=== PATIENT | female | born 1945 | race Caucasian/White ===

== ENCOUNTER 2020-07-15 16:15 | Outpatient (CLI) | payer MEDICARE, OTHER, SELFPAY ==
--- NOTE | ~2020-07-15 | US_ITS ---
EXAMINATION: US carotid duplex BI DATE: 07/15/2020 16:42 INDICATION: Carotid bruit TECHNIQUE: Grayscale, color Doppler, and pulsed Doppler images of the cervical carotid arteries were obtained. The degree of vessel stenosis is placed in one of the following categories: normal, <50%, 5 0-69%, >=70% but less than near-occlusion, near-occlusion, or total occlusion. Note that percent sten osis relative to normal distal artery lumen diameter is indirectly measured from velocity measurement s as described by Mikie, et al. Radiology 2003; 229:340-346. Notes: Normal: Peak systolic velocity <125 centimeters/sec and no plaque <50%. Peak systolic velocity <125 ( EDV <40; ICA/CCA PSV ratio <2.0; used these factors only a tandem lesions or low cardiac output or co ntralateral disease) 50-69 %: PSV 125-230 (EDV 40-100; ratio 2-4) >= 70% but less than near occlusion: PSV greater than 230 (EDV > 100; ratio> 4.0) Near Occlusion: PSV that is variable; markedly narrowed lumen Occlusion: Absent flow on color/spectral Doppler and no lumen on oliver scale. COMPARISON: None. FINDINGS: RIGHT: The right common carotid artery (CCA) peak systolic velocity (PSV) is 82 cm/s. The right internal car otid artery (ICA) PSV is 146 cm/s. The right ICA end-diastolic velocity (EDV) is 44 cm/s. The right I CA/CCA PSV ratio is 1.8. The external carotid artery (ECA) PSV is 102 cm/s. There is antegrade flow i n the right vertebral artery. LEFT: The left CCA PSV is 98 cm/s. The left ICA PSV is 128 cm/s. The left ICA EDV is 35 cm/s. The left ICA/ CCA PSV ratio is 1.3. The ECA PSV is 97 cm/s. There is antegrade flow in the left vertebral artery. IMPRESSION: 1. 50-69% stenosis in the right internal carotid artery by sonographic criteria. 2. 50-69% stenosis in the left internal carotid artery by sonographic criteria. Reviewed, dictated and finalized at location A. ROAD MECHANIC IMPRESSION: 1. 50-69% stenosis in the right internal carotid artery by sonographic criteria . 2. 50-69% stenosis in the left internal carotid artery by sonographic criteria.
== END 2020-07-15 16:16 | disposition home or self-care (01) ==
LOC: ANHIMG 16:19
PROVIDERS: PCP Nurse Practitioner Adult Health; Visit Provider Internal Medicine Cardiovascular Disease
DX: R09.89 Other specified symptoms and signs involving the circulatory and respiratory systems (principal); I65.23 Occlusion and stenosis of bilateral carotid arteries
CPT/HCPCS: 93880

== ENCOUNTER 2021-07-27 07:32 | Outpatient (CLI) | payer MEDICARE, OTHER, SELFPAY ==
[2021-07-27 08:01] LABS: Hematocrit 38.2 % (37.0-47.0); Hemoglobin 12.4 g/dL (12.0-15.0); Mean Corpuscular HGB Conc 32.5 g/dl (32-36); Mean Corpuscular Hemoglobin 30.8 pg (26-34); Mean Platelet Volume 10.2 fl (7.4-10.4); Platelet Count Result 176 k/mm3 (150-375); Red Blood Count 4.02 M/mm3 (4.2-5.4); Red Cell Distribution Width 13.2 % (11.5-14.5); White Blood Count 5.5 K/mm3 (4.5-10.0)
[2021-07-27 08:11] LABS: Cholesterol 141 mg/dL (0-200); HDL Direct 44 mg/dL; Triglycerides 114 mg/dL (<150)
[2021-07-27 08:21] LABS: LDL Cholesterol Direct 60 mg/dL
== END 2021-07-27 07:33 | disposition home or self-care (01) ==
LOC: ANHLAB 07:36
PROVIDERS: PCP Nurse Practitioner Adult Health; Visit Provider Internal Medicine Cardiovascular Disease
DX: R06.00 Dyspnea, unspecified (principal); I25.10 Atherosclerotic heart disease of native coronary artery without angina pectoris; I65.23 Occlusion and stenosis of bilateral carotid arteries; E78.00 Pure hypercholesterolemia, unspecified
CPT/HCPCS: 36415; 80061; 85027

== ENCOUNTER 2021-08-29 14:48 | Outpatient (CLI) | payer MEDICARE, OTHER, SELFPAY ==
--- NOTE | ~2021-08-29 | US_ITS ---
EXAMINATION: US carotid duplex BI DATE: 08/29/2021 15:24 INDICATION: Atherosclerosis TECHNIQUE: Grayscale, color Doppler, and pulsed Doppler images of the cervical carotid arteries were obtained. The degree of vessel stenosis is placed in one of the following categories: normal, <50%, 5 0-69%, >=70% but less than near-occlusion, near-occlusion, or total occlusion. Note that percent sten osis relative to normal distal artery lumen diameter is indirectly measured from velocity measurement s as described by Mikie, et al. Radiology 2003; 229:340-346. Notes: Normal: Peak systolic velocity <125 centimeters/sec and no plaque <50%. Peak systolic velocity <125 ( EDV <40; ICA/CCA PSV ratio <2.0; used these factors only a tandem lesions or low cardiac output or co ntralateral disease) 50-69 %: PSV 125-230 (EDV 40-100; ratio 2-4) >= 70% but less than near occlusion: PSV greater than 230 (EDV > 100; ratio> 4.0) Near Occlusion: PSV that is variable; markedly narrowed lumen Occlusion: Absent flow on color/spectral Doppler and no lumen on oliver scale. COMPARISON: None. FINDINGS: RIGHT: The right common carotid artery (CCA) peak systolic velocity (PSV) is 153 cm/s. The right internal ca rotid artery (ICA) PSV is 94 cm/s. The right ICA end-diastolic velocity (EDV) is 26 cm/s. The right I CA/CCA PSV ratio is 0.6. The external carotid artery (ECA) PSV is 81 cm/s. There is antegrade flow in the right vertebral artery. LEFT: The left CCA PSV is 98 cm/s. The left ICA PSV is 85 cm/s. The left ICA EDV is 29 cm/s. The left ICA/C CA PSV ratio is 0.9. The ECA PSV is 111 cm/s. There is antegrade flow in the left vertebral artery. IMPRESSION: 1. Less than 50% stenosis in the right internal carotid artery by sonographic criteria. 2. Less than 50% stenosis in the left internal carotid artery by sonographic criteria. Reviewed, dictated and finalized at location A. IMPRESSION: 1. Less than 50% stenosis in the right internal carotid artery by sonographic janine johnson. 2. Less than 50% stenosis in the left internal carotid artery by sonographic red lozada.
== END 2021-08-29 14:49 | disposition home or self-care (01) ==
LOC: ANHIMG 14:51
PROVIDERS: PCP Nurse Practitioner Adult Health; Visit Provider Internal Medicine Cardiovascular Disease
DX: I65.23 Occlusion and stenosis of bilateral carotid arteries (principal)
CPT/HCPCS: 93880

== ENCOUNTER 2022-06-06 15:21 | Outpatient (CLI) | payer MEDICARE, OTHER, SELFPAY ==
--- NOTE | ~2022-06-06 | XR_ITS ---
EXAM: XR knee LT min 4V DATE: 06/06/2022 16:12 HISTORY: M23.90 - Unspecified internal derangement of unspecified NKI . COMPARISON: 03/13/2017. FINDINGS: Decreased mineralization. No fracture or dislocation. No lytic or blastic lesion. Severe m edial compartment narrowing. Moderate tricompartmental osteophytosis. No erosion or periosteal change . Soft tissues within normal limits. IMPRESSION: Tricompartmental left knee osteoarthritis, severe in the medial compartment. Reviewed, dictated and finalized at location K. ARY SERIALS ASSISTANT IMPRESSION: Tricompartmental left knee osteoarthritis, severe in the medial com partment.
== END 2022-06-06 15:22 | disposition home or self-care (01) ==
PROVIDERS: PCP Family Medicine; Visit Provider Family Medicine
DX: M23.90 Unspecified internal derangement of unspecified knee (principal); M17.12 Unilateral primary osteoarthritis, left knee
CPT/HCPCS: 73564

== ENCOUNTER 2022-12-01 06:59 | Outpatient (CLI) | payer MEDICARE, OTHER, SELFPAY ==
[2022-12-01 07:51] LABS: Basophils Percent Auto 0.7 % (0.2-1.2); Eosinophils Absolute Auto 0.4 K/mm3 (0-0.3); Eosinophils Percent Auto 5.9 % (0-4.4); Hematocrit 36.9 % (37.0-47.0); Hemoglobin 11.9 g/dL (12.0-15.0); Immature Granulocyte Absolute 0.01 K/mm3 (0.00-0.031); Immature Granulocyte Percent A 0.2 % (0-0.5); Lymphocytes Absolute Auto 2.36 K/mm3 (0.9-3.2); Lymphocytes Percent Auto 39.5 % (18.3-44.2); Mean Corpuscular HGB Conc 32.2 g/dl (32-36); Mean Corpuscular Hemoglobin 30.7 pg (26-34); Mean Corpuscular Volume 95.3 fl (80-100); Mean Platelet Volume 10.8 fl (7.4-10.4); Monocytes Absolute Auto 0.7 K/mm3 (0.1-0.6); Monocytes Percent Auto 11.2 % (2.6-8.5); Neutrophils Absolute Auto 2.6 K/mm3 (1.3-6.7); Neutrophils Percent Auto 42.5 % (45.5-73.1); Platelet Count Result 191 k/mm3 (150-375); Red Blood Count 3.87 M/mm3 (4.2-5.4); Red Cell Distribution Width 13.7 % (11.5-14.5)
[2022-12-01 08:29] LABS: Alanine Aminotransferase 29 U/L (6-35); Albumin Level 4.1 g/dL (3.5-5.1); Alkaline Phosphatase 108 U/L (38-126); Anion Gap 6 mmol/L (8-16); Aspartate Amino Transferase 41 U/L (14-36); Bilirubin,Total 0.6 mg/dL (0.2-1.3); Blood Urea Nitrogen 19 mg/dL (7-17); Calcium 8.6 mg/dL (8.4-10.2); Carbon Dioxide 27 mmol/L (22-30); Chloride 108 mmol/L (98-107); Cholesterol 134 mg/dL (0-200); Estimated Glomerular Filt Rate > 60; Glucose 90 mg/dL (65-110); HDL Direct 49 mg/dL; Potassium 4.2 mmol/L (3.4-5.0); Sodium 141 mmol/L (137-145); Triglycerides 107 mg/dL (<150)
[2022-12-01 08:39] LABS: LDL Cholesterol Direct 62 mg/dL
== END 2022-12-01 07:00 | disposition home or self-care (01) ==
PROVIDERS: PCP Family Medicine; Visit Provider Family Medicine
DX: I10 Essential (primary) hypertension (principal); E78.2 Mixed hyperlipidemia; F41.1 Generalized anxiety disorder; R53.83 Other fatigue
CPT/HCPCS: 36415; 80053; 80061; 82607; 84443; 85025

== ENCOUNTER 2023-01-02 07:03 | Outpatient (CLI) | payer MEDICARE, OTHER, SELFPAY ==
[2023-01-02 07:31] LABS: Potassium 4.6 mmol/L (3.4-5.0)
[2023-01-02 07:42] LABS: Alanine Aminotransferase 31 U/L (6-35); Albumin Level 4.1 g/dL (3.5-5.1); Alkaline Phosphatase 92 U/L (38-126); Anion Gap 7 mmol/L (8-16); Aspartate Amino Transferase 37 U/L (14-36); Bilirubin,Total 0.5 mg/dL (0.2-1.3); Blood Urea Nitrogen 14 mg/dL (7-17); Carbon Dioxide 29 mmol/L (22-30); Chloride 106 mmol/L (98-107); Estimated Glomerular Filt Rate > 60; Glucose 91 mg/dL (65-110); Sodium 142 mmol/L (137-145)
[2023-01-02 07:48] LABS: Basophils Absolute Auto 0.1 K/mm3 (0.0-0.1); Eosinophils Absolute Auto 0.3 K/mm3 (0-0.3); Eosinophils Percent Auto 5.1 % (0-4.4); Hematocrit 27.2 % (37.0-47.0); Hemoglobin 12.4 g/dL (12.0-15.0); Immature Granulocyte Absolute 0.01 K/mm3 (0.00-0.031); Immature Granulocyte Percent A 0.2 % (0-0.5); Lymphocytes Absolute Auto 2.13 K/mm3 (0.9-3.2); Lymphocytes Percent Auto 41.5 % (18.3-44.2); Mean Corpuscular HGB Conc 45.6 g/dl (32-36); Mean Platelet Volume 10.8 fl (7.4-10.4); Monocytes Absolute Auto 0.6 K/mm3 (0.1-0.6); Monocytes Percent Auto 11.3 % (2.6-8.5); Neutrophils Absolute Auto 2.1 K/mm3 (1.3-6.7); Neutrophils Percent Auto 40.9 % (45.5-73.1); Platelet Count Result 169 k/mm3 (150-375); Red Blood Count 2.64 M/mm3 (4.2-5.4); Red Cell Distribution Width 16.1 % (11.5-14.5); White Blood Count 5.1 K/mm3 (4.5-10.0)
== END 2023-01-02 07:04 | disposition home or self-care (01) ==
PROVIDERS: PCP Family Medicine; Visit Provider Physician Assistant
DX: M85.80 Other specified disorders of bone density and structure, unspecified site (principal); D64.9 Anemia, unspecified; R79.89 Other specified abnormal findings of blood chemistry
CPT/HCPCS: 36415; 80053; 85025

== ENCOUNTER 2023-01-04 14:32 | Outpatient (CLI) | payer MEDICARE, OTHER, SELFPAY ==
[2023-01-04 16:47] LABS: Iron 99 ug/dL (37-170)
[2023-01-04 17:02] LABS: Percent Iron Saturation 28 % (20-50)
[2023-01-07 14:09] LABS: Red Blood Cell Folate 825 ng/mL RBC (>280)
== END 2023-01-04 14:33 | disposition home or self-care (01) ==
PROVIDERS: PCP Family Medicine; Visit Provider Physician Assistant
DX: D64.9 Anemia, unspecified (principal)
CPT/HCPCS: 36415; 82607; 82728; 82747; 83540; 83550

== ENCOUNTER 2023-01-05 07:48 | Outpatient (NON) | payer MEDICARE, OTHER, SELFPAY ==
[2023-01-05 13:07] LABS: IFOB Positive Control Positive; Immunochemical Fecal Occult Bl Negative (N)
== END 2023-01-05 07:49 | disposition home or self-care (01) ==
LOC: ANHLAB 07:50
PROVIDERS: PCP Family Medicine; Visit Provider Physician Assistant
DX: D64.9 Anemia, unspecified (principal)
CPT/HCPCS: 82274

== ENCOUNTER 2023-01-31 17:07 | Outpatient (CLI) | payer MEDICARE, OTHER, SELFPAY ==
[2023-01-31 17:44] LABS: Basophils Absolute Auto 0.1 K/mm3 (0.0-0.1); Basophils Percent Auto 0.9 % (0.2-1.2); Eosinophils Absolute Auto 0.3 K/mm3 (0-0.3); Hemoglobin 11.9 g/dL (12.0-15.0); Immature Granulocyte Absolute 0.01 K/mm3 (0.00-0.031); Immature Granulocyte Percent A 0.1 % (0-0.5); Lymphocytes Percent Auto 35.3 % (18.3-44.2); Mean Corpuscular HGB Conc 32.2 g/dl (32-36); Mean Corpuscular Hemoglobin 30.1 pg (26-34); Mean Corpuscular Volume 93.4 fl (80-100); Mean Platelet Volume 10.8 fl (7.4-10.4); Monocytes Absolute Auto 0.7 K/mm3 (0.1-0.6); Monocytes Percent Auto 10.3 % (2.6-8.5); Neutrophils Absolute Auto 3.3 K/mm3 (1.3-6.7); Neutrophils Percent Auto 48.4 % (45.5-73.1); Platelet Count Result 184 k/mm3 (150-375); Red Blood Count 3.96 M/mm3 (4.2-5.4); Red Cell Distribution Width 13.8 % (11.5-14.5); White Blood Count 6.8 K/mm3 (4.5-10.0)
== END 2023-01-31 17:08 | disposition home or self-care (01) ==
LOC: ANHLAB 17:09
PROVIDERS: PCP Family Medicine; Visit Provider Physician Assistant
DX: D64.9 Anemia, unspecified (principal)
CPT/HCPCS: 36415; 85025

== ENCOUNTER 2023-11-03 07:30 | Outpatient (CLI) | payer MEDICARE, SELFPAY ==
[2023-11-03 08:00] LABS: Basophils Percent Auto 0.7 % (0.2-1.2); Eosinophils Absolute Auto 0.4 K/mm3 (0-0.3); Eosinophils Percent Auto 6.5 % (0-4.4); Hematocrit 40.1 % (37.0-47.0); Hemoglobin 12.6 g/dL (12.0-15.0); Immature Granulocyte Absolute 0.03 K/mm3 (0.00-0.031); Immature Granulocyte Percent A 0.5 % (0-0.5); Lymphocytes Absolute Auto 2.33 K/mm3 (0.9-3.2); Lymphocytes Percent Auto 41.1 % (18.3-44.2); Mean Corpuscular HGB Conc 31.4 g/dl (32-36); Mean Corpuscular Hemoglobin 30.4 pg (26-34); Mean Corpuscular Volume 96.9 fl (80-100); Mean Platelet Volume 10.1 fl (7.4-10.4); Monocytes Absolute Auto 0.6 K/mm3 (0.1-0.6); Monocytes Percent Auto 10.6 % (2.6-8.5); Neutrophils Absolute Auto 2.3 K/mm3 (1.3-6.7); Neutrophils Percent Auto 40.6 % (45.5-73.1); Platelet Count Result 198 k/mm3 (150-375); Red Blood Count 4.14 M/mm3 (4.2-5.4); Red Cell Distribution Width 13.4 % (11.5-14.5); White Blood Count 5.7 K/mm3 (4.5-10.0)
[2023-11-03 08:08] LABS: Alanine Aminotransferase 25 U/L (6-35); Alkaline Phosphatase 90 U/L (38-126); Anion Gap 5 mmol/L (4-12); Aspartate Amino Transferase 33 U/L (14-36); Bilirubin,Total 0.7 mg/dL (0.2-1.3); Blood Urea Nitrogen 13 mg/dL (7-17); Calcium 9.1 mg/dL (8.4-10.2); Carbon Dioxide 28 mmol/L (22-30); Chloride 110 mmol/L (98-107); Cholesterol 147 mg/dL (0-200); Estimated Glomerular Filt Rate > 60; Glucose 87 mg/dL (65-110); HDL Direct 51 mg/dL; Potassium 4.9 mmol/L (3.4-5.0); Sodium 143 mmol/L (137-145); Triglycerides 113 mg/dL (<150)
[2023-11-03 08:19] LABS: LDL Cholesterol Direct 73 mg/dL
== END 2023-11-03 07:31 | disposition home or self-care (01) ==
PROVIDERS: PCP Family Medicine; Visit Provider Family Medicine
DX: E78.2 Mixed hyperlipidemia (principal); I10 Essential (primary) hypertension
CPT/HCPCS: 36415; 80053; 80061; 85025

== ENCOUNTER 2023-11-06 14:15 | Outpatient (CLI) | payer MEDICARE, SELFPAY ==
--- NOTE | ~2023-11-06 | MR_ITS ---
MRI of the right ankle Clinical history: Pain Technique: Coronal proton-density and proton-density fat-sat images, axial proton-density and proton- density fat-sat images, and sagittal proton-density and proton-density fat-sat images were acquired. Findings: Syndesmotic ligaments are intact. Anterior and posterior talofibular ligaments, and calcane ofibular ligament are intact. Deltoid ligament is intact. Medial flexor tendons, peroneus longus tendon, and anterior extensor tendons are intact. There is alessia gitudinal split tear of the peroneus brevis tendon at and just distal to the level of the lateral mal leolus tip. There is moderate to advanced Achilles tendinosis, with a focal moderate grade partial th ickness tear (axial image 15, sagittal image 9), involving approximately 50-60% of the total tendon t hickness. There are tear is approximately 4.5 cm proximal to the Achilles insertion on the calcaneus. No osteochondral lesion of the talar dome seen. There is moderate to advanced degenerative change of the naviculocuneiform and tarsometatarsal articulations, with areas of subchondral cystic change pres ent. Tibiotalar and subtalar joints are intact. No significant joint effusion. Small plantar calcaneal spur present. Plantar fascia intact. No soft tissue mass evident. There is mi ld diffuse subcutaneous soft tissue edema about the ankle, nonspecific. 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 Longitudinal split tear of the peroneus brevis tendon. Moderate to advanced degenerative change of the naviculocuneiform and tarsometatarsal joints. Reviewed, dictated and finalized at location . 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 Longitudinal split tear of the peroneus brevis tendon. Moderate to advanced degenerative change of the naviculocuneiform and tarsometa tarsal joints.
== END 2023-11-06 14:16 ==
LOC: MICIMG 14:17
PROVIDERS: PCP Family Medicine; Visit Provider Podiatrist Foot & Ankle Surgery
DX: M76.61 Achilles tendinitis, right leg (principal); M66.371 Spontaneous rupture of flexor tendons, right ankle and foot; M19.071 Primary osteoarthritis, right ankle and foot
CPT/HCPCS: 73721

== ENCOUNTER 2023-12-29 13:08 | Outpatient (CLI) | payer MEDICARE, SELFPAY ==
--- NOTE | ~2023-12-29 | XR_ITS ---
XR knee LT min 4V 12/29/2023 13:26 INDICATION: Left knee pain PROCEDURE: 4 views left knee COMPARISON: 10/04/2022 FINDINGS: Fracture, dislocation or subluxation is not identified. There is moderate osteoarthritis of the left knee. The soft tissues appear within normal limits. No foreign bodies are identified. No s ignificant joint effusion. IMPRESSION: 1: Moderate osteoarthritis of the left knee. Reviewed, dictated and finalized at location B.
== END 2023-12-29 13:09 | disposition home or self-care (01) ==
LOC: ANHIMG 13:14
PROVIDERS: PCP Family Medicine; Visit Provider Orthopaedic Surgery
DX: M17.12 Unilateral primary osteoarthritis, left knee (principal)
CPT/HCPCS: 73564

== ENCOUNTER 2024-09-18 08:19 | Outpatient (CLI) | payer MEDICARE, SELFPAY ==
--- OUTSIDE RECORDS SUMMARY | 2024-09-18 08:30 | XMS_ITS | Referral Summary ---
Author Organization [facility] Address [address] [place] [address] Care Team Providers Care Food Trades Assistants Name Role Phone Silvino Calvillo MD Primary Care Provider Encounters Date Type Department Care Team Description 08/06/2024 11:15 AM DIRECTOR COMMUNITY HEALTH NURSING Office Visit [facility] Cardiology [address] [place] [address] Aubrey Martinez MD Coronary artery disease involving [place] coronary artery of [place] heart without angina pectoris (Primary Dx); Aortic valve sclerosis; Essential hypertension; ELIECER on CPAP from Last 3 Months Allergies Active Allergy Reactions Criticality Noted Date Comments Lisinopril Cough Low 10/22/2018 Losartan Other (See comments),Cough Low 04/08/2019 Doesn't work as well as amlodipine Medications ALPRAZolam (XANAX) 0.5 mg tablet Take 1 tablet (0.5 mg total) by mouth daily Take 1 1/2 QD 9 Active aspirin 81 mg enteric coated tablet Take 1 tablet (81 mg total) by mouth daily Active calcium carbonate-vitamin D3 500 mg(1,250mg) -400 unit chewable tablet Take 1 tablet by mouth daily Active cholecalciferol (VITAMIN D-3) 5,000 unit tablet Ac tive magnesium oxide 500 mg capsule Take by mouth Active vitamin E 400 unit capsule Take 1 capsule (400 Units total) by mouth daily Active folic acid (FOLVITE) 400 mcg tablet Take 1 tablet (400 mcg total) by mouth daily Active ascorbic acid (VITAMIN C) 500 mg tablet,chewable Take 1 tablet/chew tab (500 mg total) by mouth daily Active elderberry fruit-honey 0.7-3 gram/7.5 mL liquid Take by mouth Active zinc 50 mg tablet Take 3.75 mg by mouth Active ferrous gluconate 236 mg (27 mg iron) tablet Take by mouth Active amLODIPine (NORVASC) 5 mg tabletIndications :Essential hypertension Take 1 tablet (5 mg total) by mouth daily 90 tablet 3 4 Active atorvastatin (LIPITOR) 40 mg tabletIndications :Coronary artery disease involving [place] coronary artery of [place] heart without angina pectoris,Hypercho lesterolemia Take 1 tablet (40 mg total) by mouth daily 90 tablet 3 4 Active olmesartan (BENICAR) 40 mg tabletIndications :Hypertension, unspecified type Take 1 tablet (40 mg total) by mouth daily 90 tablet 3 4 Active Active Problems Problem Noted Date Diagnosed Date PSVT (paroxysmal supraventricular tachycardia) 0 07/30/2023 Nonrheumatic aortic valve stenosis 07/17/2022 Carotid atherosclerosis, bilateral 07/25/2021 Coronary artery disease invo lving [place] coronary artery of [place] heart without angina pectoris 05/21/2019 Hypercholesterolemia 10/27/2018 Diastolic dysfunction 09/08/2018 Nonrheumatic tricuspid valve regurgitation 09/08 Nonrheumatic mitral valve regurgitation 09/09/19 19 Bradycardia 09/08/2018 Sinus tachycardia 09/03/2018 ELIECER on CPAP 09/03/2018 Pulmonary hypertension 05/08/2011 Essential hypertension 05/08/2011 MEADOWS (dyspnea on exertion) 05/08/2011 Resolved Problems Problem Noted Date Diagnosed Date Resolved Date Bilateral carotid bruits 07/13/202011/2022 Abnormal stress test 10/22/2018 023 Chest discomfort 03/25/2012 07/17/2022 Social History Tobacco Use Types Packs/Day Years Used Date Smoking Tobacco: Never Smokeless Tobacco: Never Tobacco Cessation:Counseling Given: Not Answered Alcohol Use Standard Drinks/Week Comments Not Currently 0 (1 standard drink = 0.6 oz pur e alcohol) AUDIT-C Answer Date Recorded Frequency of Alcohol Consumption Never 09/03/2018 Average Number of Drinks Not on file 019 Frequency of Binge Drinking Not on file 08/10 Comments Unknown Sex and Gender Information Value Date Recorded Sex Assigned at Not on file Legal Sex Female 1:39 AM DIRECTOR COMMUNITY HEALTH NURSING Gender Identity Not on file Sexual Orientation Not on file Last Filed Vital Signs Vital Sign Reading Time Taken Comments Blood Pressure 122/58 08/06/2024 11:09 AM DIRECTOR COMMUNITY HEALTH NURSING Pulse 68 08/06/2024 11:09 AM DIRECTOR COMMUNITY HEALTH NURSING Temperature - - Respiratory Rate 16 09/03/2018 12:46 PM CDT Oxygen Saturation 96% 08/06/2024 11:09 AM DIRECTOR COMMUNITY HEALTH NURSING Inhaled Oxygen Concentration - - Weight 72.6 kg (160 lb) 08/06/2024 11:09 AM DIRECTOR COMMUNITY HEALTH NURSING Height 160 cm (5' 3 ) 08/06/2024 11:09 AM DIRECTOR COMMUNITY HEALTH NURSING Body Mass Index 28.34 08/06/2024 11:09 AM DIRECTOR COMMUNITY HEALTH NURSING Plan of Treatment Not on file Insurance MEDICARE [employer] [facility] MEDICARE RAILROAD [facility] MEDICARE SUPPLEMENT INSURANCE MEDICARE RAILROAD [facility] MEDICARE SUPPLEMENT INSURANCE Care Teams Food Trades Assistants Relationship Specialty Start Date End Date Silvino Calvillo MD [address] [facility] [address] [place] [address] PCP - General Family Medicine 08/06/24
--- OUTSIDE RECORDS SUMMARY | 2024-09-18 08:30 | XMS_ITS | Encounter Summary ---
Author Organization [facility] Address [address] [place] [address] Care Team Providers Care Assistant Scientist Name Role Phone Unavailable Primary Care Provider Unavailabl e Encounter Details Date Type Department Care Team (Late st Contact Info) Description 07/25/2018 Lab Requisition [facility] Care DermPath Lab [address] [place] [id number] Pavithra Hughes MD [address] [facility] [address] [place] [address] Social History Tobacco Use Types Packs/Day Years Used Date Smoking Tobacco: Never Assessed Sex and Gender Information Value Date Recorded Sex Assigned at Not on file Gender Identity Not on file Sexual Orientation Not on file documented as of this encounter Plan of Treatment Not on file documented as of this encounter Procedures Procedure Name Priority Date/Time Associated Diagnosis Comments DERMATOPATH TECHNICAL REPORT Routine 07/23/2018 12:00 AM TARGET TRIMMER documented in this encounter Results * DERMATOPATH TECHNICAL REPORT (07/23/2018 12:00 AM TARGET TRIMMER) Case Report Dermatopathology Report Case: [id number] Authorizing Provider: Pavithra Hughes MD Collected: 07/23/2018 12:00 AM Pathologist: Justin Yen MD Received: 07/25/2018 07:22 AM Specimen: Skin, right plantar foot 9 2:33 PM [facility] DERMATOPATHOLOGY LABORATORY Clinical History Nevus 9 2:33 PM [facility] DERMATOPATHOLOGY LABORATORY Gross Description Specimen A: Received is one formalin filled container labeled with the patient's name and designated right plantar foot. The specimen consists of a shave biopsy measuring 7x7x2 mm. Jar [address]. [facility] Dermatopathology Laboratory performed the technical component only. 9 2:33 PM [facility] DERMATOPATHOLOGY LABORATORY Embedded Images 9 2:33 PM [facility] DERMATOPATHOLOGY LABORATORY DISCLAIMER An external and internal positive and negative controls are appropriate for the histochemical, immunohistochemical and immunofluorescence stain(s) in this case (if any), except where stated explicitly. The performance characteristics of the stain(s) cited in this report were developed and its performance characteristic determined by the Dermatopathology Laboratory at [facility], directed by Dr. Ligia Yen. These tests need not be, and therefore are not, approved by the [place] Food and Drug Administration. The tests are used for clinical purposes. 9 2:33 PM [facility] DERMATOPATHOLOGY LABORATORY Pathology/Cytolog y TISSUE SPECIMEN FROM SKIN / Unknown 07/23/2018 07/25/2018 7:22 AM TARGET TRIMMER Pavithra Hughes MD LAB - PATHOLOGY/CYT OLOGY ORDERABLES DERMATOPATHOLOGY LABORATORY [facility] - Department of Dermatology [address] [place] [address], [facility] [phone] documented in this encounter Visit Diagnoses Not on filedocumented in this encounter
--- OUTSIDE RECORDS SUMMARY | 2024-09-18 08:30 | XMS_ITS | Encounter Summary ---
Author Organization [facility] Address [address] [place] [address] Care Team Providers Care Grocery Stocker Name Role Phone Venice Matthew Primary Care Provider [phone] Encounter Details Date Type Department Care Team (Latest Contact Info) Description 11/30/2008 Outpatient Historical [facility]OLOGY Davida Giang MD Other Screening Mammogram Social History Tobacco Use Types Packs/Day Years Used Date Smoking Tobacco: Never Assessed Comments Unknown Sex and Gender Information Value Date Recorded Sex Assigned at Not on file Legal Sex Female 3:05 AM BODY MAKER MACHINE SETTER Gender Identity Not on file Sexual Orientation Not on file documented as of this encounter Plan of Treatment Not on file documented as of this encounter Procedures Procedure Name Priority Date/Time Associated Diagnosis Comments MAMMO SCREEN BILAT W OR WO CAD Routine 11/30/2008 8:38 AM CDT documented in this encounter Results * MAMMO DIGITAL SCREEN BILAT (11/30/2008 8:38 AM CDT) Anatomical Region Laterality Modality Breast Bilateral Other 11/30/2008 8:38 AM CDT Narrative 12/01/2008 1:48 PM CDT [facility] [address] [place] [id number] Admit Date: 11/30/2008 ANIYAH CALVILLO Sex: F Admit Prov: DAVIDA GIANG Date: 1945 Primary Care Prov: BRENDADAVIDA CMRN: [id number] Room: [facility] SSN: [id number] IMAGING SERVICES Ordering Prov: DAVIDA GIANG Accession Number: [id number] Interpretation BILATERAL FULL FIELD DIGITAL SCREENING MAMMOGRAM WITH CAD. Date: 11/30/2008 History: Routine Screening. Technique: Full field digital craniocaudal and mediolateral oblique projections of both breasts were obtained. Computer aided detection was performed. Comparison: 09/2006, 08/2006 Breast Parenchymal Composition: Scattered fibroglandular densities. Findings: No suspicious mass, suspicious microcalcifications, or architectural distortion in either breast is identified. Since the prior study, there has been no significant interval change. The computer aided detection system detects no significant abnormality. Overall Assessment: BI-RADS category 1: Negative. Recommendation: Annual mammography is recommended. Assessment BIRADS: 1-Negative Recommendation: Normal interval follow-up Dictated by: SUNITA POST Electronically signed by: SUNITA POST 12/01/2008 13:47 Transcribed: 12/01/2008 07:38 DKT Procedure Note Sunita Post - 12/01/2008 [id number] [place], [place] [address] Admit Date: 11/30/2008 ANIYAH CALVILLO Sex: F Admit Prov: DAVIDA GIANG Date: 1945 Primary Care Prov: DAVIDA GIANG CMRN: [id number] Room: [facility] SSN: [id number] IMAGING SERVICES Ordering Prov: DAVIDA GIANG Interpretation BILATERAL FULL FIELD DIGITAL SCREENING MAMMOGRAM WITH CAD. Date: 11/30/2008 History: Routine Screening. Technique: Full field digital craniocaudal and mediolateral oblique projections of both breasts were obtained. Computer aided detectionwas performed. Comparison: 09/2006, 08/2006 Breast Parenchymal Composition: Scattered fibroglandular densities. Findings: No suspicious mass, suspicious microcalcifications, or architectural distortion in either breast is identified. Since theprior study, there has been no significant interval change. The computeraided detection system detects no significant abnormality. Overall Assessment: BI-RADS category 1: Negative. Recommendation: Annual mammography is recommended. Assessment BIRADS: 1-Negative Recommendation: Normal interval follow-up Dictated by: SUNITA POST Electronically signed by: SUNITA POST 12/01/2008 13:47 Transcribed: 12/01/2008 07:38 DKT Davida Giang MD MAMMO ORDERABLES Final Resul t documented in this encounter Visit Diagnoses Diagnosis Other screening mammogram documented in this encounter Care Teams Grocery Stocker Relationship Specialty Start Date End Date Venice Matthew ANP [address] [address] PCP - General NURSE PRACTITIONER 05/21/18 documented as of this encounter
--- OUTSIDE RECORDS SUMMARY | 2024-09-18 08:30 | XMS_ITS | Clinical Summary ---
Author Organization [facility] Address [address] [place] [address] Care Team Providers Care Dub Room Engineer Name Role Phone Artemio Matthewie DELFINO Primary Care Provider [phone] Social History Tobacco Use Types Packs/Day Years Used Date Smoking Tobacco: Never Assessed Comments Unknown Sex and Gender Information Value Date Recorded Sex Assigned at Not on file Legal Sex Female 8:07 PM CDT Gender Identity Not on file Sexual Orientation Not on file Plan of Treatment Health Maintenance Due Date Last Done Comments Hepatitis C 1963 DTaP, Tdap and Td Vaccines ( 1 - Tdap) 01/04/1964 Zoster Vaccines (1 of 2) 1995 Annual Medicare Wellness Visit 2010 Dexa Scan (General) 2010 Pneumococcal Vaccine: 65+ Ye ars (1 of 1 - PCV) 2010 RSV Immunization or 60+ Years (1 - 1-dose 75+ series) 01/04/2020 COVID-19 Vaccine ( - 2023-2 5 season) 2024 Meningococcal B Vaccine Aged Out No l onger eligible based on patient's age to complete this topic Meningococcal Vaccine Aged Out No alessia jovita eligible based on patient's age to complete this topic RSV Immunizations Under 20 Months Aged Out No longer eligible based on patient's age to complete this topic Insurance [facility] MEDICARE Care Teams Dub Room Engineer Relationship Specialty Start Date End Date [place] Matthew NP [facility] [place] [address] PCP - General NURSE PRACTITIONER 06/14/20
--- OUTSIDE RECORDS SUMMARY | 2024-09-18 08:30 | XMS_ITS | Clinical Summary ---
Author Organization [facility] Address [address] [place] [address] Care Team Providers Care Analytical Data Miner Name Role Phone Unavailable Primary Care Provider Unavailabl e Immunizations Immunization Administration Dates Next Due Covid-19 Vaccine, Vector-nr, Rs-ad26, Pf, 0.5 Ml (Rated People/Arsanis&Arsanis) 02/04/2021 Social History Tobacco Use Types Packs/Day Years Used Date Smoking Tobacco: Never Assessed Comments Unknown Sex and Gender Information Value Date Recorded Sex Assigned at Not on file Legal Sex Female 9:13 AM CDT Gender Identity Not on file Sexual Orientation Not on file Plan of Treatment Health Maintenance Due Date Last Done Comments Hepatitis C Virus (HCV) Screening 1945 TdaP Immunization 1945 Pneumococcal Immunization (50+ years) (1 of 1 - PCV) 1995 Zoster Immunization (1 of 2) 1995 Respiratory Syncytial Virus (RSV) Immunization (Adult) (1 - 1-dose 75+ series) 01/04/2020 Influenza Immunization (#1) 2024 12/0 12/2019, 05/02/2019, 05/20/2018, Additional history exists SARS-COV-2 Immunization ( season) 2024 02/04/2021 Hepatitis B Immunization Aged Out No longer eligible based on patient's age to complete this topic Meningococcal Immunization (ACWY) Aged Out No longer eligible based on patient's age to complete this topic Rotavirus Immunization Aged Out No lo nger eligible based on patient's age to complete this topic
--- OUTSIDE RECORDS SUMMARY | 2024-09-18 08:30 | XMS_ITS | Encounter Summary ---
Author Organization [facility] Address [address] [place] [address] Care Team Providers Care Knitting Tester Name Role Phone Venice Matthew Primary Care Provider [phone] Encounter Details Date Type Department Care Team (Latest Contact Info) Description 09/03/2006 Outpatient Historical [facility] Anaid Giang MD Other Screening Mammogram (Primary Dx) Social History Tobacco Use Types Packs/Day Years Used Date Smoking Tobacco: Never Assessed Comments Unknown Sex and Gender Information Value Date Recorded Sex Assigned at Not on file Legal Sex Female 3:05 AM BLOOD DONOR RECRUITER Gender Identity Not on file Sexual Orientation Not on file documented as of this encounter Plan of Treatment Not on file documented as of this encounter Visit Diagnoses Diagnosis Other screening mammogram- Primary documented in this encounter Care Teams Knitting Tester Relationship Specialty Start Date End Date Venice Matthew ANP [address] [phone] PCP - General NURSE PRACTITIONER 05/21/18 documented as of this encounter
--- OUTSIDE RECORDS SUMMARY | 2024-09-18 08:30 | XMS_ITS | Encounter Summary ---
Author Organization [facility] Address [address] [place] [address] Care Team Providers Care Battalion Chief Name Role Phone Venice Matthew NOEMI Primary Care Provider [phone] Encounter Details Date Type Department Care Team (Latest Contact Info) Description 11/30/2008 Outpatient Historical [facility]/RADIOLOGY Davida Giang MD Symptomatic Menopausal or Female Climacteric States; Other Screening Mammogram Social History Tobacco Use Types Packs/Day Years Used Date Smoking Tobacco: Never Assessed Comments Unknown Sex and Gender Information Value Date Recorded Sex Assigned at Not on file Legal Sex Female 3:05 AM FAMILY SUPPORT COORDINATOR Gender Identity Not on file Sexual Orientation Not on file documented as of this encounter Plan of Treatment Not on file documented as of this encounter Procedures Procedure Name Priority Date/Time Associated Diagnosis Comments XR DEXA BONE DENSITY AXIAL 1 OR MORE SITES Routine 11/30/2008 9:02 AM CDT documented in this encounter Results * XR DEXA BONE DENSITY AXIAL 1 OR MORE SITES (11/30/2008 9:02 AM CDT) Anatomical Region Laterality Modality Other 11/30/2008 9:02 AM CDT Narrative 11/30/2008 9:22 AM CDT [facility] [address] [place], [place] [address] Admit Date: 11/30/2008 ANIYAH CALVILLO Sex: F Admit Prov: DAVIDA GIANG Date: 1945 Primary Care Prov: DAVIDA GIANG CMRN: [id number] Room: [facility] SSN: [id number] IMAGING SERVICES Ordering Prov: N/A Accession Number: [id number] Interpretation Examination: Bone Density Study (DEXA) Clinical History: 63 year-old postmenopausal female. Monitor for osteoporosis. Findings: Lateral radiograph of the lumbar spine: No evidence of fracture. Lumbar Spine (L 1-4 ) spine bone mineral density is 1.07 g/sq cm which corresponds to a T-score of -1.0. Femoral neck densities: Left femoral neck bone mineral density is 0.87 g/sq cm which corresponds to a T-score of -0.9. Right femoral neck bone mineral density is 0.83 g/sq cm which corresponds to a T-score of -1.2. Impressions: Lumbar spine: This patient's bone mineral density of the spine is normal when compared to the normal range of young adults and present fracture risk is considered to be very low. Hips: This patient's bone mineral density of the hip is mildly osteopenic which is normal for age when compared to the normal range of young adults and present fracture risk is considered to be very low. Comments: None. Detailed report to follow. . Dictated by: DIANA CARO 11/30/2008 09:20 Electronically signed by: DIANA CARO 11/30/2008 09:21 Procedure Note Diana Caro MD - 11/30/[address] [address] Admit Date: 11/30/2008 ANIYAH CALVILLO Sex: F Admit Prov: DAVIDA GIANG Date: 1945 Primary Care Prov: DAVIDA GIANG CMRN: [id number] Room: [facility] SSN: [id number] IMAGING SERVICES Ordering Prov: N/A Interpretation Examination: Bone Density Study (DEXA) Clinical History: 63 year-old postmenopausal female. Monitor for osteoporosis. Findings: Lateral radiograph of the lumbar spine: No evidence of fracture. Lumbar Spine (L 1-4 ) spine bone mineral density is 1.07 g/sq cmwhich corresponds to a T-score of -1.0. Femoral neck densities: Left femoral neck bone mineral density is 0.87 g/sq cm whichcorresponds to a T-score of -0.9. Right femoral neck bone mineral density is 0.83 g/sq cm whichcorresponds to a T-score of -1.2. Impressions: Lumbar spine: This patient's bone mineral density of the spine isnormal when compared to the normal range of young adults and presentfracture risk is considered to be very low. Hips: This patient's bone mineral density of the hip is mildlyosteopenic which is normal for age when compared to the normal range of youngadults and present fracture risk is considered to be very low. Comments: None. Detailed report to follow. . Dictated by: DIANA CARO 11/30/2008 09:20 Electronically signed by: DIANA CARO 11/30/2008 09:21 Davida Giang MD DIAGNOSTIC IMAGING ORDERABLE S Final Result documented in this encounter Visit Diagnoses Diagnosis Symptomatic menopausal or female climacteric states Other screening mammogram documented in this encounter Care Teams Battalion Chief Relationship Specialty Start Date End Date Venice Matthew ANP [address] [address] PCP - General NURSE PRACTITIONER 05/21/18 documented as of this encounter
--- OUTSIDE RECORDS SUMMARY | 2024-09-18 08:30 | XMS_ITS | Clinical Summary ---
Author Organization [facility] Address [address] [place] [address] Care Team Providers Care Fur Puller Name Role Phone Unavailable Primary Care Provider Unavailabl e Source Comments [facility],non-owned Affiliates and Associated Physician Practices is amultiple site organization consisting of ambulatory clinics and hospital sitesin [place], [place], [place] and [place]. This disclosure is being madepursuant to the Care Everywhere program and may not contain all information available regarding this patient. Last updated 18.[facility] [employer] Social History Tobacco Use Types Packs/Day Years Used Date Smoking Tobacco: Never Assessed Sex and Gender Information Value Date Recorded Sex Assigned at Not on file Gender Identity Not on file Sexual Orientation Not on file Plan of Treatment Health Maintenance Due Date Last Done Comments BONE DENSITY TESTING 1945 MEDICARE AWV 12 MONTHS 1945 DTAP/TDAP/TD VACCINES (1 - Tdap) 01/04/1964 PNEUMOCOCCAL VACCINE 50+ (1 of 1 - PCV) 1995 ZOSTER VACCINE (1 of 2) 1995 Respiratory Syncytial Virus (RSV) Vaccine Pt: or over 60 yrs (1 - 1-dose 75+ series) 01/04/2020 COVID-19 VACCINE ( - 2023-2 5 season) 2024 DEPRESSION SCREENING 06/11/2024 INFLUENZA VACCINE (Season Ended) 2025 HEPATITIS B VACCINE Aged Out No longe r eligible based on patient's age to complete this topic HIB VACCINE Aged Out No longer eligi ble based on patient's age to complete this topic HPV VACCINE Aged Out No longer eligi ble based on patient's age to complete this topic MENINGOCOCCAL (Group B) VACC INE SHARED DECISION-MAKING Aged Out No longer eligibl e based on patient's age to complete this topic MENINGOCOCCAL GROUPS A/C/Y/W VACCINE Aged Out No longer eligible b ased on patient's age to complete this topic
--- OUTSIDE RECORDS SUMMARY | 2024-09-18 08:30 | XMS_ITS | Encounter Summary ---
Author Organization [facility] Address [address] [place] [address] Care Team Providers Care Supervisor [employer] Name Role Phone Unavailable Primary Care Provider Unavailabl e Encounter Details Date Type Department Care Team (Late st Contact Info) Description 11/19/2019 Lab Requisition [facility] DermPath Lab [address] [place] [id number] Payton Sharp MD [address] [place] [address] Social History Tobacco Use Types Packs/Day Years Used Date Smoking Tobacco: Never Assessed Sex and Gender Information Value Date Recorded Sex Assigned at Not on file Gender Identity Not on file Sexual Orientation Not on file documented as of this encounter Plan of Treatment Not on file documented as of this encounter Procedures Procedure Name Priority Date/Time Associated Diagnosis Comments DERMATOPATHOLOGY Routine 11/18/2019 12:0 0 AM CDT documented in this encounter Results * DERMATOPATHOLOGY (11/18/2019 12:00 AM CDT) Case Report Dermatopathology Report Case: [id number] Authorizing Provider: Payton Sharp MD Collected: 11/18/2019 12:00 AM Ordering Location: [facility] DermPath Lab Received: 11/19/2019 01:45 PM Pathologist: Lorin Causey MD Specimens: A) - Skin, left great toe B) - Skin, nose bridge 0 8:03 PM CDT DERMATOPATHOLOGY LABORATORY Final Diagnosis Specimen A. SKIN, left great toe: HEMORRHAGIC SERUM WITHIN THE CORNIFIED LAYER (CHANGES TYPICAL OF BLOOD BLISTER) (R23.3) (see microscopic description) Specimen B. SKIN, nose bridge: HEMANGIOMA (D18.01) 0 8:03 PM CDT DERMATOPATHOLOGY LABORATORY Clinical History A: MM papule, R/O luis fernando noir vs MM B: Angioma vs BCC 0 8:03 PM CDT DERMATOPATHOLOGY LABORATORY Gross Description Specimen A: Received is one formalin filled container labeled with the patient's name and designated left great toe. The specimen consists of a shave biopsy measuring 8x6x1 mm. Jar 0. Specimen B: Received is one formalin filled container labeled with the patient's name and designated nose bridge. The specimen consists of a shave biopsy measuring 4x4x1 mm. Jar 0. 0 8:03 PM CDT DERMATOPATHOLOGY LABORATORY Microscopic Description Specimen A. SKIN, left great toe: Sections show degraded red cells in the cornified layer. MART-1/Melan-A immunostain highlights regular periodicity of intraepidermal melanocytes along the basal layer. Crockett candelaria stain does not highlight significant melanin pigment within the stratum corneum. Additional deeper sections were obtained and reviewed. Specimen B. SKIN, nose bridge: In the dermis, there are dilated vascular spaces surrounded by widely spaced endothelial cells. 0 8:03 PM CDT DERMATOPATHOLOGY LABORATORY Disclaimer An external and internal positive and negative controls are appropriate for the histochemical, immunohistochemical and immunofluorescence stain(s) in this case (if any), except where stated explicitly. The performance characteristics of the stain(s) cited in this report were developed and its performance characteristic determined by the Dermatopathology Laboratory at [facility], directed by Dr. Ligia Yen. These tests need not be, and therefore are not, approved by the [place] Food and Drug Administration. The tests are used for clinical purposes. Billing Codes Specimen Charges Stain Charges 96284 30474 1 1 65439 74675 1 1 0 8:03 PM CDT DERMATOPATHOLOGY LABORATORY Embedded Images 0 8:03 PM CDT DERMATOPATHOLOGY LABORATORY Pathology/Cytology TISSUE SPECIMEN FROM SKIN / Unknown 11/18/2019 11/19/2019 1:45 PM CDT Miscellaneous samples (specimen) TISSUE SPECIMEN FROM SKIN / Unknown 11/18/2019 11/19/2019 1:45 PM CDT Payton Sharp MD LAB - PATHOLOGY/CYTO LOGY ORDERABLES DERMATOPATHOLOGY LABORATORY [facility] - Department of Dermatology [facility]/[address] [phone] documented in this encounter Visit Diagnoses Not on filedocumented in this encounter
--- OUTSIDE RECORDS SUMMARY | 2024-09-18 08:30 | XMS_ITS | CONTINUITY OF CARE DOCUMENT ---
Author Name mj barker Address Unknown Organization [facility] Address [address] [place] [address] Phone [phone] Care Team Providers Care Life Skills Consultant Name Role Phone Petar BRIONES, Sherrie Unavailable [phone] HAO MEADE Unavailable DAVIDA GUTIERREZ MD Unavailable PROBLEMS Condition Status Date Provider Notes ANXIETY active Cassidy Stahlschmidt ASTHMA active Cassidy Stahlschmidt SHORTNESS OF BREATH active Cassidy Stahlschm idt HYPERCHOLESTEROLEMIA active Cassidy Stahlsch midt HTN ESSENTIAL active Cassidy Stahlschmidt ALLERGIES No Known Drug Allergies HISTORY OF MEDICATION USE Medication Status Instructions Dates Provider Indications Com ments CALCIUM + D TABLET active 600 MG 2 1/2 MG QD Cassidy Stahlschmidt ASPIRIN 325 MG ORAL TABLET active one tab daily Cassidy Stahlschmidt CO ENZYME Q-10 CAPS active 300 MG QD Cassidy Stahlschmidt VITAMIN E 400 UNIT ORAL CAPSULE active ONE TAB. DAILY Cassidy Stahlschmidt FOLIC ACID CAPS active 800 MG QD Cassidy Stahlschmidt XANAX 0.5 MG ORAL TABLET active ONE TAB. DAILY Cassidy Stahlschmidt ATENOLOL TABLET active 37.5 MG QD Cassidy Stahlschmidt SINGULAIR 10 MG ORAL TABLET active QD Cassidy Stahlschmidt ZETIA 10 MG ORAL TABLET active ONE TAB. DAILY Cassidy Stahlschmidt INSURANCE PROVIDERS Payer name Policy type / Coverage type [facility] libertarian ID [id number] Quote Save [phone] RA[address]RO[address] MEDICARE Medicare [id number]
--- OUTSIDE RECORDS SUMMARY | 2024-09-18 08:30 | XMS_ITS | Encounter Summary ---
Author Organization [facility] Address [address] [place] [address] Care Team Providers Care Display Specialist Name Role Phone Venice Matthew Primary Care Provider [phone] Encounter Details Date Type Department Care Team (Latest Contact Info) Description 10/08/2006 Outpatient Historical [facility]/RADIOLOGY Anaid Giang MD Abnormal Mammogram, Unspecified (Primary Dx) Social History Tobacco Use Types Packs/Day Years Used Date Smoking Tobacco: Never Assessed Comments Unknown Sex and Gender Information Value Date Recorded Sex Assigned at Not on file Legal Sex Female 3:05 AM SOFTWARE SUPPORT ENGINEER Gender Identity Not on file Sexual Orientation Not on file documented as of this encounter Plan of Treatment Not on file documented as of this encounter Visit Diagnoses Diagnosis Abnormal mammogram, unspecified- Primary documented in this encounter Care Teams Display Specialist Relationship Specialty Start Date End Date Venice Matthew ANP [address] [address] PCP - General NURSE PRACTITIONER 05/21/18 documented as of this encounter
--- OUTSIDE RECORDS SUMMARY | 2024-09-18 08:30 | XMS_ITS | Clinical Summary ---
Author Organization [facility] Address [address] [place] [address] Care Team Providers Care Packing Line Operator Name Role Phone Silvino Calvillo MD Primary Care Provider Allergies Active Allergy Reactions Criticality Noted Date [...] 40 mg tabletIndications :Coronary artery disease involving [place] coronary artery of [place] heart without angina pectoris,Hypercho lesterolemia Take 1 [...] bilateral 07/25/2021 Coronary artery disease invo lving [place] coronary artery of [place] heart without angina pectoris 05/21/2019 Hypercholesterolemia 10/27/2018 Diastolic dysfunction 09/08/2018 Nonrheumatic tricuspid valve regurgitation 09/08 Nonrheumatic mitral valve regurgitation 09/09/19 19 Bradycardia 09/08/2018 Sinus tachycardia 09/03/2018 ELIECER on CPAP 09/03/2018 Pulmonary hypertension 05/08/2011 Essential hypertension 05/08/2011 MEADOWS (dyspnea on exertion) 05/08/2011 Resolved Problems Problem Noted Date Diagnosed Date Resolved Date Bilateral carotid bruits 07/13/202011/2022 Abnormal stress test 10/22/2018 023 Chest discomfort 03/25/2012 07/17/2022 Encounters Date Type Department Care Team Description 08/06/2024 11:15 AM MICROSOFT SYSTEMS ENGINEER Office Visit [facility] [address] [address] [address] [place] [address] Aubrey Martinez MD Coronary artery disease involving w[place] coronary artery of [place] heart without angina pectoris (Primary Dx); Aortic valve sclerosis; Essential hypertension; ELIECER on CPAP from Last 3 Months Surgical History Surgery Date Site/Laterality Comments SECTION Medical History Medical History Date Comments Hypertension Skin disorder Sleep apnea Family History Medical History Relation Name Comments Heart attack Brother Stroke Father Lung cancer Mother Relation Name Status Comments Brother Father Mother Social History Tobacco Use Types Packs/Day Years [...] on file Legal Sex Female 1:39 AM MICROSOFT SYSTEMS ENGINEER Gender Identity Not on file Sexual Orientation Not on file Obstetrics History Last Filed Vital Signs Vital Sign Reading Time Taken Comments Blood Pressure 122/58 08/06/2024 11:09 AM MICROSOFT SYSTEMS ENGINEER Pulse 68 08/06/2024 11:09 AM MICROSOFT SYSTEMS ENGINEER Temperature - - Respiratory Rate 16 09/03/2018 12:46 PM CDT Oxygen Saturation 96% 08/06/2024 11:09 AM MICROSOFT SYSTEMS ENGINEER Inhaled Oxygen Concentration - - Weight 72.6 kg (160 lb) 08/06/2024 11:09 AM MICROSOFT SYSTEMS ENGINEER Height 160 cm (5' 3 ) 08/06/2024 11:09 AM MICROSOFT SYSTEMS ENGINEER Body Mass Index 28.34 08/06/2024 11:09 AM MICROSOFT SYSTEMS ENGINEER Plan of Treatment Health Maintenance Due Date Last Done Comments Depression Screening 1945 Fall Risk Assessment 1945 Hepatitis C Screening 1945 DTaP/Tdap/Td Vaccine (1 - Tdap) 01/04/1956 Hepatitis B Screening 1963 Pneumococcal vaccine 65+ (1 of 2 - PCV) 01/04/1964 Zoster Vaccine (1 of 2) 1995 Well Visit 65+ 2010 Osteoporosis Screening-Bone Density Scan 12/19/2012 12/19/2010 Covid-19 Vaccine (2 - 2023-2 5 season) 2024 02/04/2021 Influenza Vaccine (#1) 2024 8, 04/20/2017, 04/05/2016, Additional history exists Insurance MEDICARE RAILROAD [facility] MEDICARE RAILROAD [facility] MEDICARE SUPPLEMENT INSURANCE MEDICARE RAILROAD [facility] MEDICARE SUPPLEMENT INSURANCE Care Teams Packing Line Operator Relationship Specialty Start Date End Date Silvino Calvillo MD [address] [facility] [address] [place] [address] PCP - General Family Medicine 08/06/24
--- OUTSIDE RECORDS SUMMARY | 2024-09-18 08:30 | XMS_ITS | Clinical Summary ---
Author Organization [facility] Address [address] [place] [address] Phone Care Team Providers Care Cooperative Manager Name Role Phone Artemio Matthewie NOEMI Primary Care Provider [phone] Family History Medical History Relation Name Comments Breast Cancer Neg Hx Social History Tobacco Use Types Packs/Day Years Used Date Smoking Tobacco: Never Assessed Comments Unknown Sex and Gender Information Value Date Recorded Sex Assigned at Not on file Legal Sex Female 3:05 AM REFUND SPECIALIST Gender Identity Not on file Sexual Orientation Not on file Occupation Industry Job Start Date Job End Date Not on file Not on file Not on file Not on file Plan of Treatment Health Maintenance Due Date Last Done Comments DTAP/TDAP/TD VACCINES (1 - Tdap) 01/04/1964 PNEUMOCOCCAL VACCINE 50+ YEA RS (1 of 1 - PCV) 1995 ZOSTER VACCINE (1 of 2) 1995 RSV VACCINE (60+ or ) (1 - 1-dose 75+ series) 01/04/2020 INFLUENZA VACCINE (#1) 2024 OSTEOPOROSIS SCREENING Completed 12/19/2010, 2008 Procedures Procedure Name Priority Date/Time Associated Diagnosis Comments XR DEXA BONE DENSITY AXIAL 1 OR MORE SITES Routine 12/19/2010 8:57 AM CDT Post-menopausal from Last 3 Months or Most Recently Relevant to Health Maintenance Results * XR DEXA BONE DENSITY AXIAL 1 OR MORE SITES (12/19/2010 8:57 AM CDT) Anatomical Region Laterality Modality Digital Radiogra phy 12/19/2010 8:57 AM CDT Narrative 12/19/2010 9:05 AM CDT BONE MINERAL DENSITY (DEXA) HISTORY: 65 year old female with postmenopausal symptoms needing evaluation for osteoporosis. PROCEDURE: Using a [employer] iDXA dual energy x-ray absorptiometry system, the patient's bone mineral density was measured over the lumbar spine and femoral necks. Comparison was made to age and sex matched normal values. FINDINGS: Lumbar Spine ( L1-L4) Bone Mineral Density = 1.062 gm/cm2 Compared to young adult (T-score), difference of -1.0 Standard Deviations. The patient's spine BMD is normal when compared to that of a young adult. Left Femoral Neck Bone Mineral Density = 0.852 gm/cm2 Compared to young adult (T-score), difference of -1.3 Standard Deviations. The patient's left femoral neck BMD is osteopenic when compared to that of a young adult. Right Femoral Neck Bone Mineral Density = 0.843 gm/cm2 Compared to young adult (T-score), difference of -1.4 Standard Deviations. The patient's right femoral neck BMD is osteopenic when compared to that of a young adult. Comparison is made to the most recent measurements of BMD dated 11/30/2008. The prior spine ( L1-L4) BMD was 1.066 gm/cm2. Today's value represents a change of -0.4 %, not a statistically significant change. The prior left femoral neck BMD was 0.868 gm/cm2. Today's value represents a change of -1.8 %, not a statistically significant change. The prior right femoral neck BMD was 0.834 gm/cm2. Today's value represents a change of +1.1 %, not a statistically significant change. A significant change is defined as a change of at least 2.5 standard deviations since the prior study. Procedure Note Ramón Richards, - 12/19/2010 BONE MINERAL DENSITY (DEXA) HISTORY: 65 year old female with postmenopausal symptoms needing evaluation for osteoporosis. PROCEDURE: Using a [employer] iDXA dual energy x-ray absorptiometry system, the patient's bone mineral density was measured over the lumbar spine and femoral necks. Comparison was made to age and sex matched normal values. FINDINGS: Lumbar Spine ( L1-L4) Bone Mineral Density = 1.062 gm/cm2 Compared to young adult (T-score), difference of -1.0 Standard Deviations. The patient's spine BMD is normal when compared to that of a young adult. Left Femoral Neck Bone Mineral Density = 0.852 gm/cm2 Compared to young adult (T-score), difference of -1.3 Standard Deviations. The patient's left femoral neck BMD is osteopenic when compared to that of a young adult. Right Femoral Neck Bone Mineral Density = 0.843 gm/cm2 Compared to young adult (T-score), difference of -1.4 Standard Deviations. The patient's right femoral neck BMD is osteopenic when compared to that of a young adult. Comparison is made to the most recent measurements of BMD dated 11/30/2008. The prior spine ( L1-L4) BMD was 1.066 gm/cm2. Today's value represents a change of -0.4 %, not a statistically significant change. The prior left femoral neck BMD was 0.868 gm/cm2. Today's value represents a change of -1.8 %, not a statistically significant change. The prior right femoral neck BMD was 0.834 gm/cm2. Today's value represents a change of +1.1 %, not a statistically significant change. A significant change is defined as a change of at least 2.5 standard deviations since the prior study. Anaid Giang MD DIAGNOSTIC IMAGING ORDERABLE S Final Result from Last 3 Months or Most Recently Relevant to Health Maintenance Insurance MEDICARE RAILRO[address] [place] [address] Care Teams Cooperative Manager Relationship Specialty Start Date End Date Venice Matthew ANP [address] [address] PCP - General NURSE PRACTITIONER 05/21/18
[2024-09-18 08:38] LABS: Basophils Absolute Auto 0.1 K/mm3 (0.0-0.1); Basophils Percent Auto 0.6 % (0.2-1.2); Eosinophils Absolute Auto 0.2 K/mm3 (0-0.3); Hematocrit 39.3 % (37.0-47.0); Hemoglobin 12.4 g/dL (12.0-15.0); Immature Granulocyte Absolute 0.02 K/mm3 (0.00-0.031); Immature Granulocyte Percent A 0.2 % (0-0.5); Lymphocytes Absolute Auto 3.24 K/mm3 (0.9-3.2); Lymphocytes Percent Auto 40.1 % (18.3-44.2); Mean Corpuscular HGB Conc 31.6 g/dl (32-36); Mean Corpuscular Hemoglobin 29.9 pg (26-34); Mean Corpuscular Volume 94.7 fl (80-100); Mean Platelet Volume 9.8 fl (7.4-10.4); Monocytes Absolute Auto 0.8 K/mm3 (0.1-0.6); Monocytes Percent Auto 9.9 % (2.6-8.5); Neutrophils Absolute Auto 3.7 K/mm3 (1.3-6.7); Neutrophils Percent Auto 46.2 % (45.5-73.1); Platelet Count Result 197 k/mm3 (150-375); Red Blood Count 4.15 M/mm3 (4.2-5.4); Red Cell Distribution Width 13.6 % (11.5-14.5); White Blood Count 8.1 K/mm3 (4.5-10.0)
[2024-09-18 13:25] LABS: Alanine Aminotransferase 18 U/L (6-35); Albumin Level 4.3 g/dL (3.5-5.1); Alkaline Phosphatase 89 U/L (38-126); Anion Gap 11 mmol/L (4-12); Aspartate Amino Transferase 29 U/L (14-36); Bilirubin,Total 0.5 mg/dL (0.2-1.3); Blood Urea Nitrogen 19 mg/dL (7-17); Calcium 9.3 mg/dL (8.4-10.2); Carbon Dioxide 26 mmol/L (22-30); Chloride 108 mmol/L (98-107); Cholesterol 153 mg/dL (0-200); Estimated Glomerular Filt Rate > 60; Glucose 83 mg/dL (65-110); HDL Direct 54 mg/dL; Potassium 4.4 mmol/L (3.4-5.0); Sodium 145 mmol/L (137-145); Triglycerides 88 mg/dL (<150)
[2024-09-18 13:30] LABS: LDL Cholesterol Direct 69 mg/dL
== END 2024-09-18 08:20 | disposition home or self-care (01) ==
PROVIDERS: PCP Family Medicine
DX: E78.2 Mixed hyperlipidemia (principal); I27.20 Pulmonary hypertension, unspecified; R79.89 Other specified abnormal findings of blood chemistry
CPT/HCPCS: 36415; 80053; 80061; 82607; 85025

== ENCOUNTER 2024-10-13 12:54 | Outpatient (CLI) | payer MEDICARE, SELFPAY ==
--- NOTE | ~2024-10-13 | XR_ITS ---
XR knee RT min 4V Ordering provider: Stephen Shetty MD History: . M25.561 - Pain in right knee . Comparison: None. FINDINGS: BONES: No acute fracture or dislocation. JOINT SPACES: Narrowing of the medial compartment. Marginal osteophytes are noted. SOFT TISSUES: Normal. IMPRESSION: No acute osseous abnormality right knee. Severe osteoarthritic changes. Reviewed, dictated and finalized at location A.
--- NOTE | ~2024-10-13 | XR_ITS ---
XR knee LT min 4V Ordering provider: Stephen Shetty MD History: . M17.12 - Unilateral primary osteoarthritis, left knee . Comparison: December 29, 2023 FINDINGS: BONES: No acute fracture or dislocation. JOINT SPACES: Narrowing of the medial compartment with marginal osteophytes. SOFT TISSUES: Normal. IMPRESSION: No acute osseous abnormality left knee. Severe osteoarthritic changes. Reviewed, dictated and finalized at location A.
--- OUTSIDE RECORDS SUMMARY | 2024-10-13 13:28 | XMS_ITS | Clinical Summary ---
Author Organization [facility] Address [address] [place] [address] Care Team Providers Care Wrap Knitting Machine Operator Name Role Phone Unavailable Primary Care Provider Unavailabl e Immunizations Immunization Administration Dates Next Due Covid-19 Vaccine, Vector-nr, Rs-ad26, Pf, 0.5 Ml (Monstrous/[employer]) 02/04/2021 Social History Tobacco Use Types Packs/Day [...]
--- OUTSIDE RECORDS SUMMARY | 2024-10-13 13:28 | XMS_ITS | Encounter Summary ---
Author Organization [facility] Address [address] [place] [address] Care Team Providers Care Exhibition Designer Name Role Phone Venice Matthew Primary Care Provider [phone] Encounter Details Date Type Department Care Team (Latest Contact Info) Description 09/03/2006 Outpatient Historical [facility] LAB/RADIOLOGY Anaid Giang MD Other Screening Mammogram (Primary Dx) Social History Tobacco Use Types Packs/Day Years Used Date Smoking Tobacco: Never Assessed Comments Unknown Sex and Gender Information Value Date Recorded Sex Assigned at Not on file Legal Sex Female 3:05 AM FANCY PACKER Gender Identity Not on file Sexual Orientation Not on file documented as of this encounter Plan of Treatment Not on file documented as of this encounter Visit Diagnoses Diagnosis Other screening mammogram- Primary documented in this encounter Care Teams Exhibition Designer Relationship Specialty Start Date End Date Venice Matthew ANP [address] [phone] PCP - General NURSE PRACTITIONER 05/21/18 documented as of this encounter
--- OUTSIDE RECORDS SUMMARY | 2024-10-13 13:28 | XMS_ITS | Encounter Summary ---
Author Organization [facility] Address [address] [place] [address] Care Team Providers Care Tank Tender Name Role Phone Venice Matthew Primary Care Provider [phone] Encounter Details Date Type Department Care Team (Latest Contact Info) Description 10/08/2006 Outpatient Historical [facility] Anaid Giang MD Abnormal Mammogram, Unspecified (Primary Dx) Social History Tobacco Use Types Packs/Day Years Used Date Smoking Tobacco: Never Assessed Comments Unknown Sex and Gender Information Value Date Recorded Sex Assigned at Not on file Legal Sex Female 3:05 AM CONSULTING SYSTEMS ENGINEER Gender Identity Not on file Sexual Orientation Not on file documented as of this encounter Plan of Treatment Not on file documented as of this encounter Visit Diagnoses Diagnosis Abnormal mammogram, unspecified- Primary documented in this encounter Care Teams Tank Tender Relationship Specialty Start Date End Date Venice Matthew ANP [address] [address] PCP - General NURSE PRACTITIONER 05/21/18 documented as of this encounter
--- OUTSIDE RECORDS SUMMARY | 2024-10-13 13:28 | XMS_ITS | Clinical Summary ---
Author Organization [facility] Address [address] [facility] [place] [place] [address] Care Team Providers Care Independent Film Maker Name Role Phone Unavailable Primary Care Provider Unavailabl e Source Comments [facility],non-owned Affiliates and Associated Physician Practices is amultiple site organization consisting of ambulatory clinics and hospital sitesin [place], [place], [place] and [place]. This disclosure is being madepursuant to the Care Everywhere program and may not contain all information available regarding this patient. Last updated 18.[facility] [employer] Social History Tobacco Use Types Packs/Day Years Used Date Smoking Tobacco: Never Assessed Comments Unknown Sex and Gender Information Value Date Recorded Sex Assigned at Not on file Legal Sex Female 2:07 PM TAX COLLECTOR Gender Identity Not on file Sexual Orientation Not on file Plan of Treatment Health Maintenance Due Date Last Done Comments BONE DENSITY TESTING 1945 DTAP/TDAP/TD VACCINES (1 - Tdap) 01/04/1964 [...] patient's age to complete this topic Insurance MEDICARE [facility]
--- OUTSIDE RECORDS SUMMARY | 2024-10-13 13:28 | XMS_ITS | Encounter Summary ---
Author Organization [facility] Address 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 Gender Identity Not on file Sexual Orientation [...] AM CDT Narrative 12/01/2008 1:48 PM CDT [facility] [address] [place] [address] Admit Date: 11/30/2008 ANIYAH CALVILLO Sex: F Admit Prov: DAVIDA GIANG Date: 1945 Primary Care Prov: BRENDADAVIDA CMRN: [id number] Room: [facility] SSN: [id number] IMAGING SERVICES Ordering Prov: DAVIDA GIANG Accession Number: [id number] Interpretation BILATERAL FULL FIELD DIGITAL SCREENING MAMMOGRAM [...] DKT Procedure Note Sunita Post - 12/01/2008 [address] [place], [place] [address] Admit Date: 11/30/2008 ANIYAH CALVILLO Sex: F Admit Prov: DAVIDA GIANG Date: 1945 Primary Care Prov: DAVIDA GIANG CMRN: [id number] Room: [facility] SSN: [id number] IMAGING SERVICES Ordering Prov: DAVIDA GIANG Interpretation [...] mammogram documented in this encounter Care Teams Cinder Pitman Relationship Specialty Start Date End Date Venice Matthew ANP [address] [address] PCP - General NURSE PRACTITIONER 05/21/18 documented as of this encounter
--- OUTSIDE RECORDS SUMMARY | 2024-10-13 13:28 | XMS_ITS | Referral Summary ---
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 (Primary Dx); Aortic [...] mg iron) tablet Take by mouth Active atorvastatin (LIPITOR) 40 mg tabletIndications :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,Hypercho lesterolemia Take 1 tablet (40 mg total) by mouth daily 90 tablet 3 5 Active olmesartan (BENICAR) 40 mg tabletIndications :Hypertension, unspecified type Take 1 tablet (40 mg total) by mouth daily 90 tablet 3 5 Active amLODIPine (NORVASC) 5 mg tabletIndications :Essential hypertension Take 1 tablet (5 mg total) by mouth daily 90 tablet 3 5 Active amLODIPine (NORVASC) 5 mg tabletIndications :Essential hypertension Take 1 tablet (5 mg total) by mouth daily 90 tablet 3 4 09/24/19 25 Discontinu ed(Reorder ) atorvastatin (LIPITOR) 40 mg tabletIndications :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,Hypercho lesterolemia Take 1 tablet (40 mg total) by mouth daily 90 tablet 3 4 09/23/19 25 Discontinu ed(Reorder ) olmesartan (BENICAR) 40 mg tabletIndications :Hypertension, unspecified type Take 1 tablet (40 mg total) by mouth daily 90 tablet 3 4 09/23/19 25 Discontinu ed(Reorder ) Active Problems Problem Noted Date Diagnosed Date PSVT (paroxysmal supraventricular tachycardia) 0 07/30/2023 Nonrheumatic aortic valve stenosis 07/17/2022 Carotid atherosclerosis, bilateral 07/25/2021 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 05/21/2019 Hypercholesterolemia 10/27/2018 [...] on file Legal Sex Female 1:39 AM BEAUTY SALES CONSULTANT Gender Identity Not on file Sexual Orientation Not on file Last Filed Vital Signs Vital Sign Reading Time Taken Comments Blood Pressure 122/58 08/06/2024 11:09 AM BEAUTY SALES CONSULTANT Pulse 68 08/06/2024 11:09 AM BEAUTY SALES CONSULTANT Temperature - - Respiratory Rate 16 09/03/2018 12:46 PM CDT Oxygen Saturation 96% 08/06/2024 11:09 AM BEAUTY SALES CONSULTANT Inhaled Oxygen Concentration - - Weight 72.6 kg (160 lb) 08/06/2024 11:09 AM BEAUTY SALES CONSULTANT Height 160 cm (5' 3 ) 08/06/2024 11:09 AM BEAUTY SALES CONSULTANT Body Mass Index 28.34 08/06/2024 11:09 AM BEAUTY SALES CONSULTANT Plan of Treatment Not on file Insurance MEDICARE [facility]belle [facility] MEDICARE SUPPLEMENT INSURANCE MEDICARE [facility] MEDICARE SUPPLEMENT INSURANCE Care Teams Mash Filter Operator Relationship Specialty Start Date End Date Silvino Calvillo MD [address] [facility] [address] [place] [address] PCP - General Family Medicine 08/06/24
--- OUTSIDE RECORDS SUMMARY | 2024-10-13 13:28 | XMS_ITS | Clinical Summary ---
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 PROCEDURE: Using a PayOrPass iDXA dual energy x-ray absorptiometry system, the [...] since the prior study. Procedure Note Ramón Richards DO - 12/19/2010 BONE MINERAL DENSITY (DEXA) HISTORY: 65 year old female with postmenopausal symptoms needing evaluation for osteoporosis. PROCEDURE: Using a PayOrPass iDXA dual energy x-ray absorptiometry system, the [...] Relevant to Health Maintenance Insurance [facility]ICARE [facility] Care Teams Race Steward Relationship Specialty Start Date End Date Venice Matthew ANP [address] [address] PCP - General NURSE PRACTITIONER 05/21/18
--- OUTSIDE RECORDS SUMMARY | 2024-10-13 13:28 | XMS_ITS | Encounter Summary ---
Author Organization [facility] Address [address] [facility] [place] [address] Care Team Providers Care Felting Machine Operator Name Role Phone Unavailable Primary Care Provider Unavailabl e Encounter Details Date Type Department Care Team (Late st Contact Info) Description 07/25/2018 Lab Requisition [facility] Care DermPath Lab [address] [facility] [place] [address] Pavithra Hughes MD [address] [facility] [address] [place] [address] Social History Tobacco Use Types Packs/Day Years Used Date Smoking Tobacco: Never Assessed Comments Unknown Sex and Gender Information Value Date Recorded Sex Assigned at Not on file Legal Sex Female 2:07 PM COAL CHUTE WORKER Gender Identity Not on file Sexual Orientation Not on file documented as of this encounter Plan of Treatment Not on file documented as of this encounter Procedures Procedure Name Priority Date/Time Associated Diagnosis Comments DERMATOPATH TECHNICAL REPORT Routine 07/23/2018 12:00 AM COAL CHUTE WORKER documented in this encounter Results * DERMATOPATH TECHNICAL REPORT (07/23/2018 12:00 AM COAL CHUTE WORKER) Case Report Dermatopathology Report Case: [id number] Authorizing Provider: Pavithra Hughes MD Collected: 07/23/2018 12:00 AM Pathologist: Justin Yen MD Received: 07/25/2018 07:22 AM Specimen: Skin, right plantar foot 9 2:33 PM COAL CHUTE WORKER DERMATOPATHOLOGY LABORATORY Clinical History Nevus 9 2:33 PM COAL CHUTE WORKER DERMATOPATHOLOGY LABORATORY Gross Description Specimen A: Received is one formalin filled container labeled with the patient's name and designated right plantar foot. The specimen consists of a shave biopsy measuring 7x7x2 mm. Jar 0. [facility] Dermatopathology Laboratory performed the technical component only. 2:33 PM [facility] [[email or web address]] DERMATOPATHOLOGY LABORATORY Embedded Images 2:33 PM [facility] [[email or web address]] DERMATOPATHOLOGY LABORATORY DISCLAIMER An external and internal positive and negative controls are appropriate for the histochemical, immunohistochemical and immunofluorescence stain(s) in this case (if any), except where stated explicitly. The performance characteristics of the stain(s) cited in this report were developed and its performance characteristic determined by the Dermatopathology Laboratory at [facility], directed by Dr. Ligia Yen. These tests need not be, and therefore are not, approved by the [place] Food and Drug Administration. The tests are used for clinical purposes. 9 2:33 PM [facility] [[email or web address]] DERMATOPATHOLOGY LABORATORY Pathology/Cytolog y TISSUE SPECIMEN FROM SKIN / Unknown 07/23/2018 07/25/2018 7:22 AM COAL CHUTE WORKER Pavithra Hughes MD LAB - PATHOLOGY/CYTOLOGY OR DERABLES Final Result DERMATOPATHOLOGY LABORATORY [facility] - Department of Dermatology [address] [place] [address], [address]th [place] [address], [facility] [phone] documented in this encounter Visit Diagnoses Not on filedocumented in this encounter
--- OUTSIDE RECORDS SUMMARY | 2024-10-13 13:28 | XMS_ITS | CONTINUITY OF CARE DOCUMENT ---
Author Name mj barker Address Unknown Organization [facility] Address [address] [facility] [address] [place] [address] Phone [phone] Care Team Providers Care Pole Peeler Name Role Phone Petar BRIONES, Sherrie Unavailable [phone] HAO MEADE Unavailable DAVIDA GUTIERREZ MD [...] Payer name Policy type / Coverage type [place] [facility] constitution party ID [employer] [facility] [id number] [address] MEDICARE Medicare [id number]
--- OUTSIDE RECORDS SUMMARY | 2024-10-13 13:28 | XMS_ITS | Encounter Summary ---
Author Organization [facility] Address [address] [facility] [place] [address] Care Team Providers Care Lead Fabricator Name Role Phone Unavailable Primary Care Provider Unavailabl e Encounter Details Date Type Department Care Team (Late st Contact Info) Description 11/19/2019 Lab Requisition [facility] DermPath Lab [address] [facility] [place] [address] Payton Sharp MD [address] [facility] [address] [place] [address] Social History Tobacco Use Types Packs/Day Years Used Date Smoking Tobacco: Never Assessed Comments Unknown Sex and Gender Information Value Date Recorded Sex Assigned at Not on file Legal Sex Female 2: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 Gender Identity Not on file Sexual Orientation Not on file documented as of this encounter Plan of Treatment Not on file documented as of this encounter Procedures Procedure Name Priority Date/Time Associated Diagnosis Comments DERMATOPATHOLOGY Routine 11/18/2019 12:0 0 AM CDT documented in this encounter Results * DERMATOPATHOLOGY (11/18/2019 12:00 AM CDT) Case Report Dermatopathology Report Case: [id number] Authorizing Provider: Payton Sharp MD Collected: 11/18/2019 12:00 AM Ordering Location: [facility] DermPath Lab Received: 11/19/2019 01:45 PM [...] of intraepidermal melanocytes along the basal layer. Schuyler candelaria stain does not highlight significant melanin [...] characteristic determined by the Dermatopathology Laboratory at [facility], directed by Dr. Ligia Yen. These tests need not be, and therefore are not, approved by the [place] Food and Drug Administration. The tests are used for clinical purposes. Billing Codes Specimen Charges Stain Charges 09144 94507 1 1 [id number] 36855 1 1 0 8:03 PM CDT DERMATOPATHOLOGY LABORATORY Embedded Images 0 8:03 PM CDT DERMATOPATHOLOGY LABORATORY Pathology/Cytology TISSUE SPECIMEN FROM SKIN / Unknown 11/18/2019 11/19/2019 1:45 PM CDT Miscellaneous samples (specimen) TISSUE SPECIMEN FROM SKIN / Unknown 11/18/2019 11/19/2019 1:45 PM CDT us Payton Sharp MD LAB - PATHOLOGY/CYTOLOGY ORD ERABLES Final Result DERMATOPATHOLOGY LABORATORY [facility] - Department of Dermatology [facility]/[address] [phone] documented in this encounter Visit Diagnoses Not on filedocumented in this encounter
--- OUTSIDE RECORDS SUMMARY | 2024-10-13 13:28 | XMS_ITS | Encounter Summary ---
Author Organization [facility] Address 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 DESIGNER Gender Identity Not on file Sexual Orientation [...] AM CDT Narrative 11/30/2008 9:22 AM CDT [facility] [address] [place], [place] [address] Admit Date: 11/30/2008 ANIYAH CALVILLO Sex: F Admit Prov: DAVIDA GIANG Date: 1945 Primary Care Prov: DAVIDA GIANG CMRN: [id number] Room: [facility] SSN: [id number] IMAGING SERVICES Ordering Prov: N/A Accession Number: [id number] Interpretation Examination: Bone Density Study (DEXA) Clinical [...] Procedure Note Diana Caro MD - 11/30/[address] [address] Admit Date: 11/30/2008 ANIYAH CALVILLO Sex: F Admit Prov: DAVIDA GIANG Date: 1945 Primary Care Prov: DAVIDA GIANG CMRN: [id number] Room: [facility] SSN: [id number] IMAGING SERVICES Ordering Prov: N/A Interpretation Examination: [...] mammogram documented in this encounter Care Teams Drier Tender Relationship Specialty Start Date End Date Venice Matthew ANP [address] [address] PCP - General NURSE PRACTITIONER 05/21/18 documented as of this encounter
--- OUTSIDE RECORDS SUMMARY | 2024-10-13 13:28 | XMS_ITS | Clinical Summary ---
Author Organization [facility] Address [address] [place] [address] Care Team Providers Care Trust Manager Assistant Name Role Phone Silvino Calvillo MD Primary [...] 40 mg tabletIndications :Coronary artery disease involving shoshone-bannock coronary artery of shoshone-bannock heart without angina pectoris,Hypercho lesterolemia Take 1 [...] 40 mg tabletIndications :Coronary artery disease involving shoshone-bannock coronary artery of shoshone-bannock heart without angina pectoris,Hypercho lesterolemia Take 1 [...] bilateral 07/25/2021 Coronary artery disease invo lving shoshone-bannock coronary artery of shoshone-bannock heart without angina pectoris 05/21/2019 Hypercholesterolemia 10/27/2018 [...] Type Department Care Team Description 09/23/2024 Telephone [facility] Cardiology [address] [place] [address] Aubrey Martinez MD 08/06/2024 11:15 AM RACK WORKER Office Visit [facility] Cardiology [address] [place] [phone] Aubrey Martinez MD Coronary artery disease involving shoshone-bannock coronary artery of shoshone-bannock heart without angina pectoris (Primary Dx); Aortic [...] on file Legal Sex Female 1:39 AM RACK WORKER Gender Identity Not on file Sexual Orientation Not on file Obstetrics History Last Filed Vital Signs Vital Sign Reading Time Taken Comments Blood Pressure 122/58 08/06/2024 11:09 AM RACK WORKER Pulse 68 08/06/2024 11:09 AM RACK WORKER Temperature - - Respiratory Rate 16 09/03/2018 12:46 PM CDT Oxygen Saturation 96% 08/06/2024 11:09 AM RACK WORKER Inhaled Oxygen Concentration - - Weight 72.6 kg (160 lb) 08/06/2024 11:09 AM RACK WORKER Height 160 cm (5' 3 ) 08/06/2024 11:09 AM RACK WORKER Body Mass Index 28.34 08/06/2024 11:09 AM RACK WORKER Plan of Treatment Health Maintenance Due Date [...] 2023-2 5 season) 2024 02/04/2021 Influenza Vaccine (Season Ended) 2025 05/20/2018, 04/20/2017, 04/05/2016, Additional history exists Insurance MEDICARE [facility] MEDICARE [employer] [facility] MEDICARE SUPPLEMENT INSURANCE MEDICARE [employer] [facility] MEDICARE SUPPLEMENT INSURANCE Care Teams Trust Manager Assistant Relationship Specialty Start Date End Date Silvino Calvillo MD [address] [facility] [address] [place] [address] PCP - General Family Medicine 08/06/24
== END 2024-10-13 12:55 | disposition home or self-care (01) ==
PROVIDERS: PCP Family Medicine; Visit Provider Orthopaedic Surgery
DX: M17.0 Bilateral primary osteoarthritis of knee (principal)
CPT/HCPCS: 73564

== ENCOUNTER 2025-04-21 07:56 | Outpatient (CLI) | payer MEDICARE, SELFPAY ==
[2025-04-21 08:57] LABS: Alanine Aminotransferase 21 U/L (6-35); Albumin Level 4.2 g/dL (3.5-5.1); Alkaline Phosphatase 101 U/L (38-126); Anion Gap 7 mmol/L (4-12); Aspartate Amino Transferase 30 U/L (14-36); Bilirubin,Total 0.9 mg/dL (0.2-1.3); Blood Urea Nitrogen 16 mg/dL (7-17); Calcium 9.4 mg/dL (8.4-10.2); Carbon Dioxide 29 mmol/L (22-30); Chloride 106 mmol/L (98-107); Estimated Glomerular Filt Rate > 60; Glucose 92 mg/dL (65-110); Potassium 4.4 mmol/L (3.4-5.0); Sodium 142 mmol/L (137-145); Total Protein 7.3 g/dL (6.3-8.2)
== END 2025-04-21 07:57 | disposition home or self-care (01) ==
PROVIDERS: PCP Family Medicine
DX: I10 Essential (primary) hypertension (principal)
CPT/HCPCS: 36415; 80053